=== PATIENT | male | born 1965 | race Caucasian/White ===

== ENCOUNTER 2024-06-07 09:49 | Emergency (ER) | payer OTHER, SELFPAY ==
[2024-06-07 09:55] VITALS: BP 175/105
--- NOTE | 2024-06-07 10:56 | ED.SKININJ ---
HPI-Injury
General
Chief Complaint: Bite
Source: patient
Time Seen by Provider: 06/07/24 10:39
History of Present Illness-Injury
Initial Injury comments:
58yo left hand dominant male with a history of hypertension presenting for evaluation of a dog bite of the left hand. 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 He is presenting
with multiple puncture wounds of the hand. He reports pain and swelling. The dog is up to date on rabies vaccinations. Last Tdap in 2021.
Past History
Past History
ED Past Medical History: None
ED Past Surgical History: None
Social History
Tobacco: Non-smoker
Phy Exam
General Physical Exam
General Presentation: well appearing and no apparent distress
General age: appears stated age
General Skin: warm and dry
General Habitus: normal
General Mental: alert
ENT Exam
ENT Exam: normocephalic
Pulmonary Exam
Pulmonary Exam: no respiratory distress
Neurological Exam
Neurological Exam: alert
Dana Coma Scale
Eye Opening: Spontaneous
Verbal Response: Oriented
Motor Response: Obeys Commands
GCS Total Score: 15
Musculoskeletal Exam
Musculoskeletal Exam: other (Curved approx 3cm laceration to the dorsum of the L hand. There is a tiny puncture wound noted in between 3rd and 4th fingers. Swelling noted throughout dorsum of L hand. Palpable crepitus noted with tenderness. 2+
radial pulse and sensation intact.)
Skin Exam
Skin Exam: warm/dry
Psychiatric Exam
Psychiatric Exam: normal mood/affect
Course
Orders/Labs/Results
Orders:
Orders
06/07/24 10:56
CR Hand - Left Min 3 Views Urgent
Comment:
Reason For Exam: dog bite
Vital Signs
Initial and Last Documented VS:
Initial Vital Signs
Temp Pulse Resp BP Pulse Ox
97.4 F 68 16 175/105 98
06/07/24 09:55 06/07/24 09:55 06/07/24 09:55 06/07/24 09:55 06/07/24 09:55
Last Documented Vital Signs
Temp Pulse Resp BP Pulse Ox
97.4 F 68 16 175/105 98
06/07/24 09:55 06/07/24 09:55 06/07/24 09:55 06/07/24 09:55 06/07/24 09:55
MDM/Problems Addressed
Differential Diagnosis Includes:
58yoM here for a dog bite to the L hand 1.5 hours ago. Dog is UTD on rabies and Tdap UTD. Laceration and puncture wound noted. No areas that require suture repair. Swelling, crepitus, and tenderness noted to the dorsum of the L hand. LUE is
neurovascularly intact. Differential diagnosis includes but is not limited to: dog bite, fracture, contusion
X-rays of L hand obtained which are negative for fractures. Wounds cleaned and dressed. He was started on Augmentin for infection prophylaxis. Home wound care discussed. Advised f/u with PCP and return to the ED with any signs of infection. He was
discharged in stable condition.
*Critical Care Note
Total Time (30-74mins, 75-104mins- exclusive of procedures): Not Applicable
ED Attending Note
-
Portions of this chart may have been created with voice recognition software.� Occasional wrong word or��sound alike� substitutions may have occurred due to the inherent limitations of voice recognition software.
Discharge Plan
Departure
Patient Disposition: Home (Routine Discharge)
Date of Disposition: 06/07/24
Time of Disposition: 11:54
Patient with high blood pressure during this ER visit?: Yes
Discharge Problem:
Dog bite of left hand
Instructions: Animal Bites (DC)
Prescriptions:
New
amoxicillin-pot clavulanate 875-125 mg tablet
1 tab PO BID Qty: 14 0RF
No Action
ciprofloxacin HCl [Cipro] 500 mg tablet
500 mg PO BID Qty: 14 0RF
cephalexin 500 mg capsule
500 mg PO Q8H 7 Days Qty: 21 0RF
Referrals:
Lynnette Ayala DO [Family Provider] -
Activity Restrictions/Additional Instructions:
Take antibiotics as prescribed. Keep wound clean and dry. Change dressings daily. Apply ice to help with swelling. Take Tylenol and ibuprofen for pain.
Please follow-up with your family doctor. Return to the ER with any signs of infection (redness, drainage, warmth, fevers).
Interventions
Interventions:
*Risk Screen - Suicide Last Done: 06/07/24 09:55
*General Assessment Last Done: 06/07/24 09:55
*Neglect/Abuse Screening Last Done: 06/07/24 09:55
*Nursing Disposition Last Done: 06/07/24 12:02
ED-Skin Assessment Last Done: 06/07/24 10:45
Discharge Date and Time
Discharge Date/Time: 06/07/24 12:02
Print Language: TELUGU
== END 2024-06-07 12:02 | disposition home or self-care (01) ==
LOC: EMR 09:49
PROVIDERS: EMERGENCY PHYSICIAN Emergency Medicine; FAMILY PHYSICIAN Family Medicine
DX: S61.452A Open bite of left hand, initial encounter (principal); W54.0XXA Bitten by dog, initial encounter; Y99.0 Civilian activity done for income or pay; I10 Essential (primary) hypertension
CPT/HCPCS: 99283; 73130